=== PATIENT | female | born 1955 | race Caucasian/White ===

== ENCOUNTER 2017-03-28 03:02 | Emergency (ER) | payer MEDICARE, MEDICAID ==
--- NOTE | 2017-03-28 03:30 | ED Physician Chart ---
Chief Complaint/HPI - Patient Information Date Seen:: 03/28/17 Time Seen:: 03:15 Chief Complaint:: G- tube replacement History of Present Illness:: Patient apparently pulled out her gastrostomy tube. A Ordaz catheter was placed and the stoma. Allergies:: Allergies Allergy/AdvReac Type Severity Reaction Status Date / Time No Known Allergies Allergy Verified 10/04/16 15:01 Historian:: EMS Review:: Nurse's Note Reviewed Review of Systems - Review of Systems General/Constitutional: No fever, No chills Skin: No skin lesions Head: No headache ENT: No earache Neck: No neck pain Cardio Vascular: No chest pain Pulmonary: No SOB GI: No nausea, No vomiting G/U: No dysuria, No frequency Musculoskeletal: No bone or joint pain, No back pain Endocrine: No polyuria, No polydipsia Psychiatric: Prior psych history Hematopoietic: No bruising Allergic/Immuno: No urticaria Neurological: No syncope Past Medical History - Past Medical History Past Medical History: PUD/GERD, Seizures, Thyroid disorder, Other (osteoporosis ; hypothyroidism; anemia; peripheral vascular disease; acute renal failure; sick sinus syndrome; vitamin D deficiency; anxiety; depression history of transient ischemic attack; dementia;) Family History: Other (unavailable) Social History: Care Facility Surgical History: PEG/GTube (right hip prosthesis), other Psychiatricy History: Schizophrenia Family Medical History - Family Member Paternal History Unknown: Yes Ethnicity: Unknown Living Status: Unknown Hx Family Cancer: (UNKNOWN PT NON VERBAL) Hx Family Coronary Artery Disease: (UNKNOWN PT NON VERBAL) Hx Family Congestive Heart Failure: (UNKNOWN) Hx Family Hypertension: (UNKNOWN) Hx Family Stroke: (UNKNOWN) Hx Family Diabetes: (UNKNOWN) Hx Family Seizures: (UNKNOWN) Hx Family Dementia: (UNKNOWN) Hx Family AIDS: (UNKNOWN) Hx Family COPD: (UNKNOWN) Hx Family Hepatitis: (UNKNOWN) Hx Family Psychiatric Problems: (UNKNOWN) Hx Family Tuberculosis: (UNKNOWN) Physical Exam - Physical Examination General/Constitutional: Awake, Well-developed, well-nourished, Alert Other Gen/Cons comments:: Alert; repetitive speech Head: Atraumatic Eyes: Lids, conjuctiva normal Other Skin comments:: Slight granulation tissue around G-tube stoma ENMT: External ears, nose nl Neck: No nuchal rigidity Respiratory: Clear to Auscultation Cardio Vascular: RRR GI: No tenderness/rebounding/guarding, No organomegaly : No CVA tenderness Extremities: No edema Neuro/Psych: No focal deficits Misc: No paraspinal tenderness Labs/Radiology/EKG Results - Lab Results Results: Laboratory Results - last 24 hr 03/28/17 03/28/17 03/28/17 03:44 03:44 03:44 WBC 7.1 D RBC 5.17 H Hgb 14.7 D Hct 44.1 D MCV 85.3 MCH 28.4 MCHC Differential 33.3 RDW 13.3 Plt Count 233 MPV 8.6 Neutrophils % 53.0 Lymphocytes % 33.6 Monocytes % 7.9 Eosinophils % 4.6 Basophils % 0.9 PT 10.1 INR 0.97 PTT (Actin FS) 25.1 L Sodium 141 Potassium 3.3 L Chloride 108 H Carbon Dioxide 20.9 L Anion Gap 15.4 BUN 22 Creatinine 0.7 Est GFR ( Amer) > 60.0 Est GFR (Non-Af Amer) > 60.0 BUN/Creatinine Ratio 31.4 Glucose 88 Calcium 10.7 H Assessment - Assessment General Assessment: At about 0330 a KUB was taken after the injection of 50 mL of Gastrografin into the newly replaced gastrostomy tube. Gastrografin was seen at the tip of the gastrostomy tube but did not appear to be in the stomach. Seven or eight minutes later a second KUB was taken and again the At 0710 Gastrografin appeared not to be in the gastrointestinal tract. At 0710 repeat KUB showed gastrograffin to be in the ascending colon. - Procedures Procedures:: Skin cleansed with Betadine solution; October 15 [place] G-tube then inserted into the stoma ED Septic Shock - . Is Septic Shock (SBP<90, OR Lactate>4 mmol\L) present?: No Reassessment (Disposition) - Reassessment Reassessment Condition:: Improved - Diagnosis Diagnosis:: dementia; schizophrenia; G-tube replacement. - Patient Disposition Admitted to:: Med/Surg Admitting Medical Physician:: Haris Pichardo Condition at Disposition:: Stable, Improved
[2017-03-28 03:54] LABS: % BASOPHILS 0.9 % (0.0-2.0); % EOSINOPHILS 4.6 % (0.0-5.0); % LYMPHOCYTES 33.6 % (20.0-50.0); % MONOCYTES 7.9 % (2.0-10.0); MEAN CELL VOLUME 85.3 fl (81-100); MEAN CORPUSCULAR HEMOGLOBIN 28.4 pg (27.0-31.0); MEAN CORPUSCULAR HGB CONC 33.3 pg (28.0-36.0); MEAN PLATELET VOLUME 8.6 fl; NEUTROPHILE ABSOLUTE 3.7 Th/cmm (1.8-8.0); PLATELET COUNT 233 Th/cmm (150-400); RED BLOOD COUNT 5.17 Mil/cmm (3.80-5.10); RED CELL DISTRIBUTION WIDTH 13.3 % (11.5-20.0)
[2017-03-28] MEDS ORDERED: Diatrizoate Meglumine/Diatri 30 mL Sol ONE (03:54)
[2017-03-28 04:02] LABS: HEMATOCRIT 44.1 % (35.0-45.0); HEMOGLOBIN 14.7 gm/dL (11.7-15.5); WHITE BLOOD COUNT 7.1 Th/cmm (4.8-10.8)
[2017-03-28 04:19] LABS: INR 0.97 (0.5-1.4); PROTHROMBIN TIME (TEST) 10.1 SECONDS (9.5-11.5)
[2017-03-28 04:23] LABS: ANION GAP 15.4 (7.0-16.0); BUN - UREA NITROGEN 22 mg/dL (7-25); BUN/CREATININE RATIO 31.4; CALCIUM SERUM 10.7 mg/dL (8.6-10.3); CARBON DIOXIDE 20.9 mEq/L (21.0-31.0); CHLORIDE 108 mEq/L (98-107); CREATININE - SERUM 0.7 mg/dL (0.6-1.2); GLUCOSE 88 mg/dL (70-105); POTASSIUM SERUM 3.3 mEq/L (3.5-5.1); SODIUM SERUM 141 mEq/L (136-145)
--- NOTE | 2017-03-28 09:16 | Diagnostic Imaging Report ---
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 Contrast was administered to patient's percutaneous feeding tube and multiple fluoroscopic images were obtained. Initial images demonstrate contrast opacification of the stomach. 3 hour delayed images demonstrate residual contrast in the stomach, small bowel and contrast within the large bowel. IMPRESSION: Intraluminal confirmation of patient's percutaneous gastric feeding tube.
== END 2017-03-28 10:00 ==
LOC: ER 03:02
DX: Z43.1 Encounter for attention to gastrostomy (principal); F20.9 Schizophrenia, unspecified; F03.90 Unspecified dementia, unspecified severity, without behavioral disturbance, psychotic disturbance, mood disturbance, and anxiety; E07.9 Disorder of thyroid, unspecified; R47.02 Dysphasia; F29 Unspecified psychosis not due to a substance or known physiological condition; K21.9 Gastro-esophageal reflux disease without esophagitis; Z93.1 Gastrostomy status; Z86.73 Personal history of transient ischemic attack (TIA), and cerebral infarction without residual deficits
CPT/HCPCS: 36415-UA; 80048-TC; 85025-TC; 85610-TC; 85730-TC; Z7502; Z7610